=== PATIENT | male | born 1960 | race Two or more races ===

== ENCOUNTER 2017-11-19 | Day surgery (SDC) | END 2017-11-19 22:42 | disposition home or self-care (01) ==

== ENCOUNTER 2019-05-03 19:25 | Inpatient (IN) | payer OTHER ==
[~2019-05-03] VITALS: Ht 182.9 cm; Wt 84.1 kg
[~2019-05-03 19:25] MED LIST: ALBU90OI INH; ALLO100 PO; BENZ100A PO; GUAI120S1 PO; METO50 PO; MUCINEX D ER 61 EACH PO; OMEPRAZOLE MAGN20 MG PO; Polytrim Eye Dr10 ML BOTHEYES; Prilosec Otc20 MG PO; RANI150EL PO; Zithromax250 MG PO; [UNRECOGNIZED DRUG - REMARK]
[2019-05-03 19:50] LABS: Calcium, Ionized (POC) 1.07 mmol/L (1.10-1.46); Chloride (POC) 106 mmol/L (98-108); Creatinine (POC) 1.7 mg/dL (0.8-1.3); Glucose (ISTAT POC) 152 mg/dL (70-99); Potassium (POC) 3.8 mmol/L (3.5-5.5); Sodium (POC) 140 mmol/L (135-148); Total CO2 (POC) 22 mmol/L (21-32)
[2019-05-03 19:57] LABS: BASOPHILS ABSOLUTE AUTO 0.02 K/mm3 (0.00-0.23); BASOPHILS PERCENT AUTO 0 % (0-2); EOSINOPHILS ABSOLUTE AUTO 0.06 K/mm3 (0.00-0.68); EOSINOPHILS PERCENT AUTO 1 % (0-6); Hematocrit 46.4 % (37.0-53.0); Hemoglobin 15.7 g/dL (13.5-17.5); IMMATURE GRAN ABSOLUTE AUTO 0.02 K/mm3 (0.00-0.10); IMMATURE GRAN PERCENT AUTO 0 % (0-1); LYMPHOCYTES ABSOLUTE AUTO 1.66 K/mm3 (0.84-5.20); LYMPHOCYTES PERCENT AUTO 20 % (21-46); MONOCYTES ABSOLUTE AUTO 0.85 K/mm3 (0.16-1.47); MONOCYTES PERCENT AUTO 10 % (4-13); Mean Corpuscular HGB 31.4 pg (26.0-34.0); Mean Corpuscular HGB Conc 33.8 g/dL (31.5-36.5); Mean Corpuscular Volume 93 fL (80-100); Mean Platelet Volume 11.1 fL (9.1-12.4); NEUTROPHILS ABSOLUTE AUTO 5.74 K/mm3 (1.96-9.15); NEUTROPHILS PERCENT AUTO 69 % (41-73); Platelet Count 225 K/mm3 (150-400); RDW Coefficient Variation 12.3 % (11.7-14.2); RDW Standard Deviation 42.4 fL (35.1-46.3); White Blood Cell Count 8.35 K/mm3 (4.00-11.30)
[2019-05-03 20:01] LABS: Influenza A Negative (NEGATIVE); Influenza B Negative (NEGATIVE)
[2019-05-03 20:20] LABS: Alanine Aminotransfer (ALT/SGP 36 U/L (12-78); Albumin, Blood 3.3 g/dL (3.4-5.0); Albumin/Globulin Ratio 0.8 (0.8-1.8); Alk Phos 83 U/L (50-136); Anion Gap 9 mmol/L (6-16); Aspartate Aminotrans (AST/SGOT 24 U/L (12-37); Bilirubin, Total 0.3 mg/dL (0.1-1.0); Blood Urea Nitrogen 20 mg/dL (8-24); CO2, Blood 24 mmol/L (21-32); Calcium, Blood 8.4 mg/dL (8.5-10.1); Chloride, Blood 108 mmol/L (98-108); Creatinine, Blood 1.66 mg/dL (0.60-1.20); Glomerular Filtration Rate 45 (60-); Glucose, Blood 146 mg/dL (70-99); Potassium, Blood 3.9 mmol/L (3.5-5.5); Sodium, Blood 141 mmol/L (136-145); Total Protein, Blood 7.3 g/dL (6.4-8.2); Troponin I <0.015 ng/mL (0.000-0.040)
[2019-05-03 21:09] LABS: Source, Urine Clean Catch
[2019-05-03 21:11] LABS: Bilirubin, Urine Neg (Neg); Blood, Urine 5+ (Neg); Glucose Qualitative, Urine Neg (Neg); Ketones, Urine Neg (Neg); Leukocyte Esterase, Urine Neg (Neg); Nitrite, Urine Neg (Neg); Protein, Urine 3+ (Neg); Urobilinogen, Urine NORM (Normal); pH, Urine 6.5 (5.0-8.0)
[2019-05-03 21:20] LABS: Appearance, Urine Hazy (Clear); Color, Urine Yellow (P-Yellow)
[2019-05-03 21:22] LABS: Bacteria Mod /hpf; Mucus Light (0-Heavy); Squamous Epithelial Cells Few /hpf (Few)
[2019-05-04 04:34] LABS: Bun/Creatinine Ratio 10.8 (12.0-20.0); Creatinine, Blood 1.48 mg/dL (0.60-1.20); Potassium, Blood 4.3 mmol/L (3.5-5.5)
--- NOTE | 2019-05-04 07:24 | NUR ---
SHIFT SUMMARY ARRIVED TO ROOM APPROX MIDNIGHT. NO STOOL SAMPLE. A/O NO C/O PAIN. USING URINAL AT BEDSIDE. TYLENOL GIVEN FOR TEMP OF 101.8 ORALLY AND BROUGHT IT DOWN TO 98.8. HE WAS ABLE TO SLEEP SOME T/O NIGHT. C/O DRY COUGH AND GOT ORDER FOR TESSALON PERLES. TELE SHOWED NSR BUT WOULD JUMP UP WHEN COUGHING. CALL LIGHT IN REACH.
--- NOTE | 2019-05-04 16:01 | NUR ---
Per admit trigger, I met with Sony to offer prayer and spiritual support. He has been estranged from his [place] community since the of his 5 yr old grand-daughter a few years ago. He spoke at length about this. He is still clearly grieving this loss. Sony appeared to benefit from theraputic listening and gentle counsellors. He needed to talk. I provided spiritual direction and prayer to good effect. He admits this hospitalization worried him. "Last night I thought I was going to ." He feels better now with renewed hope. I will remain available.
--- NOTE | 2019-05-04 18:08 | NUR ---
SHIFT SUMMARY NO ACUTE CHANGES TO PRESENT THIS SHIFT. PT WOKE BRIEFLY DURING SHIFT REPORT. NO C/O. PT ADMITTED FOR SEVERE SEPSIS, PT REPORTED NOT FEELING WELL AT ALL AT HOME. VSS THRU OUT THE DAY. PT USING URINAL AT BS TODAY. PLACED IN CONTACT ISOLATION PER INFECTION CONTROL PROTOCOL; STOOL CX TO BE OBTAINED, PT AWARE. PT HAD REPORTED AN EPISODE OF DIARRHEA AT HOME, SEVERAL HOURS PRIOR TO ADMIT, BUT HAS NOT HAD ANY STOOL FOR OVER 24 HRS. LUNGS T/O ARE COARSE WITH EXP WHEEZES. DRY NPC THIS AM; TESSALON GIVEN PER EMAR. NO FURTHER COUGHING NOTED. PT C/O SLIGHT SHELTON EARLIER TODAY; TYLENOL GIVEN. PT REPORTED IT EFFECTIVE. NO FURTHER C/O. CALL LT IN REACH.
[2019-05-04] MEDS ORDERED: ZOLP10 PO (18:26)
[2019-05-04] MEDS ORDERED: ARIP10 PO (18:26)
[2019-05-04] MEDS ORDERED: BRINTELLIX20 MG PO (18:27)
[2019-05-04] MEDS ORDERED: Prazosin HCl2 MG PO (18:34)
[2019-05-05 05:32] LABS: Albumin, Blood 2.6 g/dL (3.4-5.0); Anion Gap 6 mmol/L (6-16); Blood Urea Nitrogen 13 mg/dL (8-24); Bun/Creatinine Ratio 11.3 (12.0-20.0); CO2, Blood 27 mmol/L (21-32); Calcium, Blood 8.1 mg/dL (8.5-10.1); Chloride, Blood 108 mmol/L (98-108); Creatinine, Blood 1.15 mg/dL (0.60-1.20); Glomerular Filtration Rate >60 (60-); Glucose, Blood 105 mg/dL (70-99); Phosphorus, Blood 3.5 mg/dL (2.5-4.9); Potassium, Blood 3.8 mmol/L (3.5-5.5); Sodium, Blood 141 mmol/L (136-145)
[2019-05-05] MEDS ORDERED: BENZ100A PO (11:21)
[2019-05-05] MEDS ORDERED: TAMS.4ER PO (11:21)
--- NOTE | 2019-05-05 14:37 | NUR ---
SHIFT SUMMARY PT AWAKE DURING SHIFT REPORT. NO C/O. IVF'S STILL INFUSING. CONTACT ISOLATION D/C'D PER INFECTION CONTROL. GI PANEL D/C'D BY DR HOWARD. TELE D/C'D WELL WHEN PT UP TO SHOWER. PT THEN REPORTED THAT HE FELT MUCH BETTER TODAY AND REQUESTED WHEN HE MIGHT BE GOING HOME. PT REPORTED THAT HE NEEDED TO NOTIFY HIS BOSS. DR HOWARD TO TO ASSESS PT AND WROTE D/C ORDERS. D/C INSTRUCTIONS GIVEN TO PT. MEDS FAXED TO [facility]. APPT MADE TO PCP. PT'S RIDE WAITING DOWN STAIRS. PT REQUESTED TO WALK OUT ON HIS OWN. PT'S LUNGS IMPROVED FROM YESTERDAY. STILL HAD OCCASSIONAL DRY, NPC. NO C/O N/V/D SINCE PRIOR TO ADMISSION. PLEASANT, CO-OP, INDEPENDENT.
== END 2019-05-05 11:44 | disposition home or self-care (01) | DRG 872 ==
LOC: ER 19:25 → MEDS 22:09
PROVIDERS: Internal Medicine; Physician Assistant; ADMIT Internal Medicine
DX: A41.9 Sepsis, unspecified organism (principal); N17.9 Acute kidney failure, unspecified; N39.0 Urinary tract infection, site not specified; E87.2 Acidosis; R65.20 Severe sepsis without septic shock; E86.0 Dehydration; I95.9 Hypotension, unspecified; J40 Bronchitis, not specified as acute or chronic; R31.9 Hematuria, unspecified; R30.0 Dysuria; N18.3 Chronic kidney disease, stage 3 (moderate); I12.9 Hypertensive chronic kidney disease with stage 1 through stage 4 chronic kidney disease, or unspecified chronic kidney disease; N40.0 Benign prostatic hyperplasia without lower urinary tract symptoms; Z87.440 Personal history of urinary (tract) infections
CPT/HCPCS: 36415; 71045; 76770; 80047; 80048; 80053; 80069; 81001; 83605; 83690; 84484; 84550; 85014; 85025; 87086; 87804; 90686; 93005; 93010; 94640; 94760; 96360; 96361; 99285-25; A9270; J0696; J1644; J2405; J7030; J7050; J7120

== ENCOUNTER 2022-10-04 08:55 | Day surgery (SDC) | payer OTHER ==
[~2022-10-04] VITALS: Ht 182.9 cm; Wt 115.1 kg
[~2022-10-04 08:55] MED LIST changes: +ARIP10 PO; +BRINTELLIX20 MG PO; +Bactrim Ds Tab1 EACH PO; +METO50ER PO; +OMEP20ER PO; +Prazosin HCl2 MG PO; +TAMS.4ER PO; +ZOLP10 PO
--- NOTE | 2022-10-04 09:44 | NUR ---
Ambulatory in Day SurgeryPatient states colon prep results clear. Patient confirms NPO status and agrees with scheduled surgery. History, Chart, Medications and Allergies reviewed before start of procedure.Lungs clear T/O to Auscultation. Patient States Post-Procedure ride home has been arranged.
[2022-10-04 09:46] VITALS: BP 172/135
--- NOTE | 2022-10-04 09:56 | NUR ---
PT BP 172/135-DR. GURROLA UPDATED AND SUMMONED BY TO SEE PT. PT TO FOLLOW UP WITH PCP AND TAKE METOPROLOL. PT STATES THAT HE HAS NOT TAKEN ANY OF HIS ROUTINE MEDS FOR THE LAST WEEK. PT TO KEEP HIS FOLLOW-UP APPOINTMENT WITH DR. GURROLA AND THE COLONOSCOPY WITH BE RESCHEDULED AT THAT TIME.
== END 2022-10-04 10:03 | disposition home or self-care (01) ==
LOC: ORSCMMR 08:55 → ORD 10:00 → ORSCMMR 10:00
DX: K62.5 Hemorrhage of anus and rectum (principal); Z53.9 Procedure and treatment not carried out, unspecified reason
CPT/HCPCS: J7120